=== PATIENT | male | born 1955 | race Caucasian/White ===

== ENCOUNTER 2019-08-26 07:27 | Outpatient (CLI) | payer OTHER, SELFPAY ==
--- NOTE | ~2019-08-26 | US_ITS ---
EXAMINATION: US right upper quadrant DATE: 08/26/2019 08:18 INDICATION: Elevated alkaline phosphatase TECHNIQUE: Multiple grayscale and Doppler ultrasound images of the abdomen were obtained. COMPARISON: None available FINDINGS: The head, body, and tail of the pancreas are normal. There is a 1.7 cm cyst in the right he patic lobe. The liver is otherwise normal with normal echogenicity and echotexture. No surface nodula rity. Normal hepatopetal flow in the main portal vein. The gallbladder is normal with no abnormal wal l thickening, pericholecystic fluid or stones. The normal common bile duct measures 6 mm. There was n o sonographic Nelson sign. IMPRESSION: 1. Normal sonographic study of the gallbladder. Reviewed, dictated and finalized at location A.
== END 2019-08-26 07:28 | disposition home or self-care (01) ==
LOC: ANHIMG 07:31
PROVIDERS: PCP Family Medicine; Visit Provider Family Medicine
DX: R74.8 Abnormal levels of other serum enzymes (principal)
CPT/HCPCS: 76705